=== PATIENT | female | born 1955 | race Caucasian/White ===

== ENCOUNTER 2017-03-06 09:13 | Day surgery (SDC) | payer BC ==
[2017-03-06 09:45] VITALS: BMI 29.2
[2017-03-06] MEDS ORDERED: PROPOFOL 20 ML ONE ×2 (10:16)
[2017-03-06 10:58] VITALS: TEMP 97.7
[2017-03-06 11:44] VITALS: BP 169/64; PULSE 54
--- NOTE | 2017-03-07 13:25 | PATH ---
Surgical Pathology Report Patient Name: DANNY MAC [facility]. Rec. #: [id number] /Age/Gender: 1955 (Age: 62) / F Account: [id number] Location: [facility]-ENDOSCOPY Taken: 03/06/2017 Received: 03/06/2017 Reported: 03/07/2017 Physicians: Bear Olson M.D. Specimen(s) Received A: BX 2ND PORTION DUODENUM AND BULB B: BX GASTRIC ANTRUM Clinical History Abdominal pain Gastric ulcers Final Diagnosis A. DUODENUM, SECOND PORTION AND BULB, BIOPSY: DUODENAL MUCOSA WITH CHRONIC INFLAMMATION AND FOCAL KEAGAN'S GLANDS HYPERPLASIA. NO HISTOLOGIC EVIDENCE OF GLUTEN SENSITIVE ENTEROPATHY (CELIAC DISEASE). B. STOMACH, ANTRUM, BIOPSY: GASTRIC ANTRAL MUCOSA WITH MILD TO MODERATE CHRONIC GASTRITIS AND REACTIVE GASTROPATHY. IMMUNOSTAIN FOR H. PYLORI IS NEGATIVE FOR ORGANISMS. Electronically Signed Raymond Douglas M.D. Gross Description A. Received in formalin, labeled "biopsy second portion of duodenum and bulb" are 3 barney, irregular portions of soft tissue averaging 0.4 cm in greatest dimension. The specimens are submitted in toto in one cassette. B. Received in formalin, labeled "biopsy gastric antrum" are 3 barney, irregular portions of soft tissue ranging from 0.2-0.5 cm in greatest dimension. The specimens are submitted in toto in one cassette. 03/06/201703/06/2017
== END 2017-03-06 11:44 | disposition home or self-care (01) ==
LOC: JASU-ENDO 09:13
PROVIDERS: ATTEND Internal Medicine Gastroenterology
PROC: 0DB98ZX Excision of Duodenum, Via Natural or Artificial Opening Endoscopic, Diagnostic (ICD-10-PCS; 2017-03-06)
PROC: 0DB68ZX Excision of Stomach, Via Natural or Artificial Opening Endoscopic, Diagnostic (ICD-10-PCS; principal; 2017-03-06 10:00)
DX: K25.9 Gastric ulcer, unspecified as acute or chronic, without hemorrhage or perforation (principal)
CPT/HCPCS: 88305-TC; 88342-TC

== ENCOUNTER 2017-09-27 07:58 | Day surgery (SDC) | payer BC ==
[2017-09-27 08:29] VITALS: BMI 29.1
[2017-09-27] MEDS ORDERED: LIDOCAINE HCL/PF 2% SDV 5ML VIAL ONE (08:49)
[2017-09-27] MEDS ORDERED: PROPOFOL 20 ML ONE ×5 (08:49)
[2017-09-27 09:16] VITALS: TEMP 97.5
[2017-09-27 09:48] VITALS: BP 139/76
[2017-09-27 10:13] VITALS: PULSE 56
--- NOTE | 2017-09-30 13:05 | PATH ---
Surgical Pathology Report Patient Name: DANNY MAC [facility]. Rec. #: [id number] /Age/Gender: 1955 (Age: 62) / F Account: [id number] Location: [facility]-ENDOSCOPY Taken: 09/27/2017 Received: 09/27/2017 Reported: 09/30/2017 Physicians: Bear Olson M.D. Specimen(s) Received BX ANTRUM Clinical History Preoperative diagnosis: History of gastric ulcer Postoperative diagnosis: Healed gastric ulcer Final Diagnosis STOMACH, ANTRUM, BIOPSY: GASTRIC ANTRAL MUCOSA WITH MILD CHRONIC GASTRITIS. IMMUNOHISTOCHEMICAL STAIN FOR H. PYLORI IS NEGATIVE. Electronically Signed Lacy Lea M.D. Gross Description Received in formalin, labeled "biopsy antrum" are 2 barney, irregular portions of soft tissue measuring 0.3 and 0.4 cm. in greatest dimension. The specimens are submitted in toto in one cassette. /09/27/201709/27/2017
== END 2017-09-27 10:00 | disposition home or self-care (01) ==
LOC: JASU-ENDO 07:58
PROVIDERS: ATTEND Internal Medicine Gastroenterology
PROC: 0DB68ZX Excision of Stomach, Via Natural or Artificial Opening Endoscopic, Diagnostic (ICD-10-PCS; principal; 2017-09-27 09:00)
DX: K25.9 Gastric ulcer, unspecified as acute or chronic, without hemorrhage or perforation (principal)
CPT/HCPCS: 88305-TC; 88342-TC

== ENCOUNTER 2021-12-15 04:46 | Day surgery (SDC) | payer OTHER, BC ==
[2021-12-13 12:43] VITALS: BMI 28.1
[2021-12-15 11:10] VITALS: TEMP 97.7
[2021-12-15 11:34] VITALS: PULSE 67
[2021-12-15 11:49] VITALS: BP 130/74
== END 2021-12-15 12:24 | disposition home or self-care (01) ==
LOC: JASU-ENDO 04:46
PROVIDERS: ATTEND Internal Medicine Gastroenterology
PROC: 0DBP8ZX Excision of Rectum, Via Natural or Artificial Opening Endoscopic, Diagnostic (ICD-10-PCS; principal; 2021-12-15 11:00)
DX: Z12.11 Encounter for screening for malignant neoplasm of colon (principal); K62.1 Rectal polyp; K57.30 Diverticulosis of large intestine without perforation or abscess without bleeding
CPT/HCPCS: 88305-TC

== ENCOUNTER 2022-09-19 07:45 | Day surgery (SDC) | payer OTHER, BC ==
[2022-09-19] MEDS ORDERED: SODIUM CHLORIDE 0.9% 500 ML INFUS.BAG IV ONE ×2 (08:03→11:17)
[2022-09-19] MEDS ORDERED: ACETAMINOPHEN 1000 MG/100 ML BAG IVPB ONE (08:03)
[2022-09-19 08:21] VITALS: BMI 28.5
[2022-09-19] MEDS ORDERED: ACETAMINOPHEN INJECTION 100 ML IVPB ONE (08:28)
[2022-09-19 08:40] LABS: HEMATOCRIT 37.6 % (32.4-45.2); HEMOGLOBIN 12.5 G/dL (10.7-15.3); INR 1.08 (0.83-1.09); MCH 29.3 pg (25.7-33.7); MCHC 33.4 g/dl (32.0-36.0); MEAN CELL VOLUME 87.9 fl (80-96); PLATELET COUNT 236.1 10^3/uL (134-434); PROTHROMBIN TIME (PATIENT) 12.4 SEC (9.7-13.0); RBC 4.28 10^6/uL (3.60-5.2); RDW 15.5 % (11.6-15.6); WHITE BLOOD COUNT 9.3 10^3/uL (4.0-10.8)
[2022-09-19 08:48] LABS: ALBUMIN 3.6 g/dl (3.4-5.0); BILIRUBIN,TOTAL 1.6 mg/dl (0.2-1); CALCIUM 8.9 mg/dl (8.5-10); CREATININE 0.9 mg/dl (0.55-1.3)
[2022-09-19] MEDS: CEFOXITIN SODIUM 1 GM in DEXTROSE 5%-WATER - 100 ML IVPB SCH ×2 (11:27→21:25)
[2022-09-19] MEDS ORDERED: amLODIPine BESYLATE 5 MG TABLET (FP) PO ONE (11:38)
[2022-09-19] MEDS ORDERED: amLODIPine BESYLATE 5 MG TABLET (FP) ONE (11:41)
[2022-09-19] MEDS ORDERED: HYDROCHLOROTHIAZIDE 25 MG TABLET (FP) ONE (11:42)
[2022-09-19] MEDS ORDERED: HYDROCHLOROTHIAZIDE 12.5 MG CAPSULE (FP) PO SCH (11:45)
[2022-09-19] MEDS ORDERED: KETOROLAC TROMETHAMINE 15 MG/ML VIAL ONE (14:04)
[2022-09-19] MEDS ORDERED: ACETAMINOPHEN 1000 MG/100 ML BAG IVPB PRN (14:44)
[2022-09-19] MEDS ORDERED: BUPIVACAINE HCL 100 ML ONE (15:24)
[2022-09-19] MEDS ORDERED: ACETAMINOPHEN 325 MG TABLET (FP) PO PRN (16:08)
[2022-09-19] MEDS ORDERED: oxyCODONE HCL 5 MG TABLET PO PRN (16:08)
[2022-09-19] MEDS ORDERED: ONDANSETRON 4 MG/2 ML VIAL IVPUSH PRN (16:08)
[2022-09-19] MEDS ORDERED: LACTATED RINGERS SOLUTION 1,000 ML IV SCH (16:15)
[2022-09-19] MEDS ORDERED: MIDAZOLAM HCL 2 MG/2 ML SINGLE DOSE VIAL ONE (16:23)
[2022-09-19] MEDS ORDERED: PROPOFOL 20 ML ONE (16:23)
[2022-09-19] MEDS ORDERED: SUCCINYLCHOLINE CHLORIDE 200 MG/10 ML SYRINGE ONE (16:23)
[2022-09-19] MEDS ORDERED: ROCURONIUM BROMIDE 50 MG/5 ML SYRINGE ONE (16:24)
[2022-09-19] MEDS ORDERED: HEPARIN NA (PORCINE) 5,000 UNITS/ML 1ML VIAL ONE (16:41)
[2022-09-19] MEDS ORDERED: AMPICILLIN NA/SULBACTAM NA 1.5 GM VIAL ONE (16:56)
[2022-09-19] MEDS ORDERED: DEXAMETHASONE SOD PHOSPHATE 4 MG/1 ML VIAL ONE (16:59)
[2022-09-19] MEDS ORDERED: ONDANSETRON 4 MG/2 ML VIAL ONE ×2 (16:59→17:31)
[2022-09-19] MEDS ORDERED: BUPIVACAINE HCL/PF 2.5 MG/ML - 30 ML VIAL IJ ONE (17:04)
[2022-09-19] MEDS ORDERED: SUGAMMADEX SODIUM 200 MG/2 ML VIAL ONE (17:16)
[2022-09-19] MEDS ORDERED: KETOROLAC TROMETHAMINE 30 MG/1 ML VIAL ONE (17:25)
[2022-09-19] MEDS ORDERED: FENTANYL CITRATE/PF 50 MCG/ML VIAL ONE (17:31)
[2022-09-20] MEDS: CEFOXITIN SODIUM 1 GM in DEXTROSE 5%-WATER - 100 ML IVPB SCH ×3 (03:26→09:37)
[2022-09-20] MEDS ORDERED: LEVOTHYROXINE SODIUM 100 MCG 5 ML VIAL IVPUSH SCH (07:00)
[2022-09-20 08:55] LABS: ALBUMIN 3.2 g/dl (3.4-5.0); BILIRUBIN,TOTAL 1.5 mg/dl (0.2-1); CALCIUM 8.6 mg/dl (8.5-10); CREATININE 1.1 mg/dl (0.55-1.3); TOT PROT 6.5 g/dl (6.4-8.2)
[2022-09-20 09:10] LABS: BASO % 0.1 % (0-2.0); HEMATOCRIT 34.9 % (32.4-45.2); HEMOGLOBIN 11.6 GM/dL (10.7-15.3); LYMPH % 12.2 % (8-40); MCH 29.3 pg (25.7-33.7); MCHC 33.3 g/dl (32.0-36.0); MEAN CELL VOLUME 87.8 fl (80-96); MEAN PLT VOLUME 8.5 fl (7.5-11.1); MONO % 1.8 % (3.8-10.2); NEUT % 85.9 % (42.8-82.8); PLATELET COUNT 233 10^3/uL (134-434); RBC 3.97 M/mm3 (3.60-5.2); RDW 14.9 % (11.6-15.6)
[2022-09-20 09:27] VITALS: BP 123/68; PULSE 76; RESP 16; TEMP 98.5
[2022-09-20] MEDS ORDERED: CITALOPRAM HYDROBROMIDE 20 MG TABLET PO SCH (10:00)
[2022-09-20] MEDS ORDERED: amLODIPine BESYLATE 5 MG TABLET (FP) PO SCH (10:00)
[2022-09-20] MEDS ORDERED: ATORVASTATIN CA 10 MG TABLET (FP) PO SCH (22:00)
== END 2022-09-20 14:51 | disposition home or self-care (01) ==
LOC: FER 07:45 → FASUSAT 14:43 → SUATTDRO 14:43 → FASUSAT 17:07 → FM/S 17:16 → FASUSAT 09-20 14:51
PROVIDERS: ATTEND Internal Medicine
PROC: 0DTJ4ZZ Resection of Appendix, Percutaneous Endoscopic Approach (ICD-10-PCS; principal; 2022-09-19 17:08)
DX: K35.80 Unspecified acute appendicitis (principal); I10 Essential (primary) hypertension
CPT/HCPCS: 0241U-QW; 36415; 74177-TC; 80053; 81003; 83735; 84100; 85025; 85027; 85610; 86850; 86900; 86901; 87086; 88304-TC; 93005; 94760; 99285-25; J1644; Q9967